=== PATIENT | male | born 1985 | race Caucasian/White ===

== ENCOUNTER 2020-11-03 20:12 | Emergency (ER) | payer OTHER ==
[~2020-11-03] VITALS: Ht 185.4 cm; Wt 115.7 kg
[~2020-11-03 20:12] MED LIST: ABILIFY; ABILIFY 5 MG TAB5 M1 PO; CELEXA; KEFLEX500 MG PO; NORCO 5-325 TA1 EACH PO; PERCOCET 5-3251 EACH PO; VISTARIL 25 MG25 M1 PO
[2020-11-03] MEDS ORDERED: ZESTRIL10 MG PO (20:24)
[2020-11-03] MEDS ORDERED: NORCO5 PO (21:03)
[2020-11-03 21:15] VITALS: BP 154/80
== END 2020-11-03 21:15 | disposition home or self-care (01) ==
LOC: M.ERS 20:12
DX: S69.81XA Other specified injuries of right wrist, hand and finger(s), initial encounter (principal); I10 Essential (primary) hypertension; W22.8XXA Striking against or struck by other objects, initial encounter; Y93.89 Activity, other specified; Y92.89 Other specified places as the place of occurrence of the external cause; Y99.8 Other external cause status